=== PATIENT | male | born 1990 | race Caucasian/White ===

== ENCOUNTER 2024-10-16 12:41 | Emergency (ER) | payer SELFPAY ==
--- NOTE | 2024-10-16 12:48 | XR_ITS ---
WS: [id number] Exam: XR hand RT min 3V* [id number] Date/Time of Exam: 10/16/2024 12:57 PM Reason For Exam: injury There is a fracture of the distal end of the fifth metacarpal with volar angulation of the metacarpal head. No other fractures are identified. The joints are maintained. Soft tissue swelling along the fracture site. Bowing deformity of the visualized distal ulna which may be secondary to prior fracture. XR/XR hand RT min 3V* [id number] IMPRESSION: 1. Angulated fracture of the distal fifth metacarpal with soft tissue swelling.
--- OUTSIDE RECORDS SUMMARY | 2024-10-16 12:48 | XMS_ITS | Encounter Summary ---
Author Organization [facility] Address [address] [place] [address] Care Team Providers Care Deaf Interpreter Name Role Phone Yue Awad OPERATIONS DISPATCHER Primary Care Provider + Encounter Details Date Type Department Care Team (Latest Contact Info) Description 10/22/1998 Outpatient Historical [facility] Medicine [address] [phone] Vikki Peña MD [address] [place] [address] Contact dermatitis and other eczema, due to unspecified cause (Primary Dx); Impetigo; Attention deficit disorder with hyperactivity(314.01 ) Social History Tobacco Use Types Packs/Day Years Used Date Smoking Tobacco: Never Assessed Sex and Gender Information Value Date Recorded Sex Assigned at Not on file Legal Sex Male 2:56 AM SEMI DRIVER Gender Identity Not on file Sexual Orientation Not on file documented as of this encounter Plan of Treatment Not on file documented as of this encounter Visit Diagnoses Diagnosis Contact dermatitis and other eczema, due to unspecified cause- Primary Impetigo Attention deficit disorder with hyperactivity(314.01) Attention deficit disorder with hyperactivity documented in this encounter Additional Health Concerns Infection Onset Date Last Indicated Resolved Time C Diff Comment:Current 02/03/19 Hx 11/14/18 11/14/2018 02/03/2019 04/05/2019 8:[address] documented as of this encounter Care Teams Deaf Interpreter Relationship Specialty Start Date End Date Yue Awad NP PCP - General NURSE PRACTITIONER 06/20/18 documented as of this encounter
--- OUTSIDE RECORDS SUMMARY | 2024-10-16 12:48 | XMS_ITS | Encounter Summary ---
Author Organization [facility] Address [address] [place] [address] Care Team Providers Care Business Process Representative Name Role Phone Yue Awad AGRICULTURAL ENGINEER Primary Care Provider + Encounter Details Date Type Department Care Team (Latest Contact Info) Description 01/29/1999 [facility] Medicine [address] [phone] Vikki Peña MD [address] [place] [address] Attention deficit disorder with hyperactivity(314.01 ) (Primary Dx) Social History Tobacco Use Types Packs/Day Years Used Date Smoking Tobacco: Never Assessed Sex and Gender Information Value Date Recorded Sex Assigned at Not on file Legal Sex Male 2:56 AM QUALITY ASSURANCE Gender Identity Not on file Sexual Orientation Not on file documented as of this encounter Plan of Treatment Not on file documented as of this encounter Visit Diagnoses Diagnosis Attention deficit disorder with hyperactivity(314.01)- Primary Attention deficit disorder with hyperactivity documented in this encounter Additional Health Concerns Infection Onset Date Last Indicated Resolved Time C Diff Comment:Current 02/03/19 Hx 11/14/18 11/14/2018 02/03/2019 04/05/2019 8:[address] documented as of this encounter Care Teams Business Process Representative Relationship Specialty Start Date End Date Yue Awad NP PCP - General NURSE PRACTITIONER 06/20/18 documented as of this encounter
--- OUTSIDE RECORDS SUMMARY | 2024-10-16 12:48 | XMS_ITS | Encounter Summary ---
Author Organization [facility] Address [address] [place] [address] Care Team Providers Care Logger All Round Name Role Phone Yue Awad BIOLOGICAL SCIENCE TECHNICIAN Primary Care Provider + Encounter Details Date Type Department Care Team (Latest Contact Info) Description 08/25/1998 Outpatient Historical [facility] Medicine [address] [phone] Vikki Peña MD [address] [place] [address] Attention deficit disorder with hyperactivity(314.01 ) (Primary Dx) Social History Tobacco Use Types Packs/Day Years Used Date Smoking Tobacco: Never Assessed Sex and Gender Information Value Date Recorded Sex Assigned at Not on file Legal Sex Male 2:56 AM MERCHANDISE EXAMINER Gender Identity Not on file Sexual Orientation [...] documented as of this encounter Care Teams Logger All Round Relationship Specialty Start Date End Date Yue Awad NP PCP - General NURSE PRACTITIONER 06/20/18 documented as of this encounter
--- OUTSIDE RECORDS SUMMARY | 2024-10-16 12:48 | XMS_ITS | Clinical Summary ---
Author Organization [facility] Address [address] [place] [address] Care Team Providers Care Manager Fire Name Role Phone Yue Awad BOTTLE PACKING MACHINE CLEANER Primary Care Provider + Allergies No known active allergies Medications metoprolol tartrate (LOPRESSOR) 100 mg tablet Take 1 Tablet (100 mg) by mouth 2 times daily. 60 Tablet 3 05/08/2019 Active lisinopril (PRINIVIL) 20 mg tablet Take 1 Tablet (20 mg) by mouth daily. 90 Tablet 3 05/08/2019 Active ondansetron (ZOFRAN ODT) 4 mg Tablet, Rapid Dissolve Take 1 Tablet (4 mg) by mouth every 8 hours as needed for Nausea/Emesis . Dissolve tablet on top of tongue, then swallow with saliva. 21 Tablet 05/08/2019 Active cyclobenzaprine (FLEXERIL) 10 mg tablet Take 1 Tablet (10 mg) by mouth daily at bedtime. 30 Tablet 2 02/05/2020 Active Active Problems Problem Noted Date Diagnosed Date Tobacco use 05/08/2019 Essential hypertension 05/08/2019 Moderate protein-calorie malnutrition 02/11/2019 Acute pancreatitis 02/10/2019 Clostridioides difficile infection 11/15/2018 HTN (hypertension), benign 11/13/2018 Sepsis 11/13/2018 Umbilical hernia 11/13/2018 Crohn's disease of ileum 01/13/2016 Partial small bowel obstruction 01/13/2016 Morbid obesity 01/13/2016 Enteritis with ileus Granulomatous colitis Epigastric abdominal pain Immunizations Immunization Administration Dates Next Due (M-M-R II/PRIORIX)(12 MO UP) MEASLES, MUMPS AND RUBELLA VIRUS VACCINE, 0.5 ML IM/SUBCUT 12/07/1995,08/03/1995,10/25/1991,1990 Dt Dtp Dtap Vaccine 08/03/1995, 5,10/25/1991,1990,1990,1990 HIB, Unspecified Formulation 10/25/1991,12/17/18 91,1990 Hepatitis B Vaccine 05/16/1995,01/31/1995,1994 IPV/OPV 10/25/1991, 1,1990,1990 Family History Medical History Relation Name Comments Healthy Mother Colon Cancer Neg Hx Relation Name Status Comments Father Mother Alive Social History Tobacco Use Types Packs/Day Years Used Date Smoking Tobacco: Some Days Cigarettes 0.5 7 Smokeless Tobacco: Current Chew Comments:Some day tobacco ch ew Alcohol Use Standard Drinks/Week Comments Yes 0.8 (1 standard drink = 0.6 oz p ure alcohol) infrequently Sex and Gender Information Value Date Recorded Sex Assigned at Not on file Legal Sex Male 2:56 AM CHIEF OPERATIONS OFFICER Gender Identity Not on file Sexual Orientation Not on file Occupation Industry Job Start Date Job End Date Not on file Not on file Not on file Not on file Last Filed Vital Signs Vital Sign Reading Time Taken Comments Blood Pressure 138/88 02/05/2020 1:08 PM CDT Pulse 87 02/05/2020 1:08 PM CDT Temperature 36.9 C (98.4 F) 02/05/2020 1:08 PM CDT Respiratory Rate 20 02/05/2020 1:08 PM CDT Oxygen Saturation 96% 02/05/2020 1:08 PM CDT Inhaled Oxygen Concentration - - Weight 166.4 kg (366 lb 12.8 oz) 02/05/2020 1:08 PM CDT Height 162.6 cm (5' 4 ) 02/05/2020 1:08 PM CDT Body Mass Index 62.96 02/05/2020 1:08 PM CDT Plan of Treatment Health Maintenance Due Date Last Done Comments DTAP/TDAP/TD VACCINES (6 - Tdap) 2001 08/03/1995, 01/31/1995, 10/25/1991, Additional history exists INFLUENZA VACCINE (#1) 2024 HEPATITIS B VACCINES Completed 05/16/1995, 01/31/1995, 12/01/1994 HPV VACCINES Aged Out No longer eligi ble based on patient's age to complete this topic Insurance RX [facility] [employer] Advance Directives For more information, please contact: [phone] * Full Code (Latest Code Status on File) Date Activated Date Inactivated Comments 02/10/2019 4:08 AM 02/12/2019 6:22 PM * Full Code Date Activated Date Inactivated Comments 02/02/2019 9:09 PM 02/06/2019 3:14 PM * Full Code Date Activated Date Inactivated Comments 11/14/2018 1:25 AM 11/16/2018 4:45 PM * Full Code Date Activated Date Inactivated Comments 01/13/2016 3:50 AM 01/17/2016 7:09 PM * Full Code Date Activated Date Inactivated Comments 01/07/2016 10:38 AM 01/07/2016 1:49 PM Care Teams Manager Fire Relationship Specialty Start Date End Date Yue Awad NP PCP - General NURSE PRACTITIONER 06/20/18
--- OUTSIDE RECORDS SUMMARY | 2024-10-16 12:48 | XMS_ITS | Encounter Summary ---
Author Organization [facility] Address [address] [place] [address] Care Team Providers Care Window Cutter Name Role Phone Yue Awda BANQUET COORDINATOR Primary Care Provider + Encounter Details Date Type Department Care Team (Latest Contact Info) Description 09/30/1998 Outpatient Historical [facility] Medicine [address] [address] Ede Oneal MD [address] [place] [address] Impetigo (Primary Dx); Acute tonsillitis Social History Tobacco Use Types Packs/Day Years Used Date Smoking Tobacco: Never Assessed Sex and Gender Information Value Date Recorded Sex Assigned at Not on file Legal Sex Male 2:56 AM MOTOR COACH TOUR OPERATOR Gender Identity Not on file Sexual Orientation Not on file documented as of this encounter Plan of Treatment Not on file documented as of this encounter Visit Diagnoses Diagnosis Impetigo- Primary Acute tonsillitis documented in this encounter Additional Health Concerns Infection Onset Date Last Indicated Resolved Time C Diff Comment:Current 02/03/19 Hx 11/14/18 11/14/2018 02/03/2019 04/05/2019 8:[address] documented as of this encounter Care Teams Window Cutter Relationship Specialty Start Date End Date Yue Awad NP PCP - General NURSE PRACTITIONER 06/20/18 documented as of this encounter
[2024-10-16 12:49] VITALS: BP 208/115; PULSE 94; TEMP 36.6; O2SAT 96
--- OUTSIDE RECORDS SUMMARY | 2024-10-16 12:49 | XMS_ITS | Encounter Summary ---
Author Organization [facility] Address [address] [place] [address] Care Team Providers Care Institute Director Name Role Phone Yue Awad BOTTLE LABELER Primary Care Provider + Encounter Details Date Type Department Care Team (Latest Contact Info) Description 06/27/2000 Outpatient Historical [facility] Medicine [address], [place] [address] Ede Oneal MD [address] [place] [address] Attention deficit disorder with hyperactivity(314.01 ) (Primary Dx); Observation of childhood or adolescent antisocial behavior Social History Tobacco Use Types Packs/Day Years Used Date Smoking Tobacco: Never Assessed Sex and Gender Information Value Date Recorded Sex Assigned at Not on file Legal Sex Male 2:56 AM SUSPECT ARTIST SUPERVISOR Gender Identity Not on file Sexual Orientation Not on file documented as of this encounter Plan of Treatment Not on file documented as of this encounter Visit Diagnoses Diagnosis Attention deficit disorder with hyperactivity(314.01)- Primary Attention deficit disorder with hyperactivity Observation of childhood or adolescent antisocial behavior documented in this encounter Additional Health Concerns Infection Onset Date Last Indicated Resolved Time C Diff Comment:Current 02/03/19 Hx 11/14/18 11/14/2018 02/03/2019 04/05/2019 8:[address] documented as of this encounter Care Teams Institute Director Relationship Specialty Start Date End Date Yue Awad NP PCP - General NURSE PRACTITIONER 06/20/18 documented as of this encounter
--- OUTSIDE RECORDS SUMMARY | 2024-10-16 12:49 | XMS_ITS | Encounter Summary ---
Author Organization [facility] Address [address] [place] [address] Care Team Providers Care Pressed Or Blown Glass Worker Name Role Phone Yue Awad COMPUTER SYSTEMS INTEGRATOR Primary Care Provider + Encounter Details Date Type Department Care Team (Latest Contact Info) Description 10/10/2002 Outpatient Historical [facility] Medicine [address], [place] [address] Ede Oneal MD [address] [place] [address] DERMATITIS NOS (Primary Dx) Social History Tobacco Use Types Packs/Day Years Used Date Smoking Tobacco: Never Assessed Sex and Gender Information Value Date Recorded Sex Assigned at Not on file Legal Sex Male 2:56 AM STORE STOCK ASSOCIATE Gender Identity Not on file Sexual Orientation Not on file documented as of this encounter Plan of Treatment Not on file documented as of this encounter Visit Diagnoses Diagnosis Contact dermatitis and other eczema, due to unspecified cause- Primary documented in this encounter Additional Health Concerns Infection Onset Date Last Indicated Resolved Time C Diff Comment:Current 02/03/19 Hx 11/14/18 11/14/2018 02/03/2019 04/05/2019 8:[address] documented as of this encounter Care Teams Pressed Or Blown Glass Worker Relationship Specialty Start Date End Date Yue Awda NP PCP - General NURSE PRACTITIONER 06/20/18 documented as of this encounter
--- OUTSIDE RECORDS SUMMARY | 2024-10-16 12:49 | XMS_ITS | Encounter Summary ---
Author Organization [facility] Address [address] [place] [address] Care Team Providers Care Special Education Assistant Name Role Phone Yue Awad ARMHOLE SEWER Primary Care Provider + Encounter Details Date Type Department Care Team (Latest Contact Info) Description 04/19/1999 Outpatient Historical [address], [place] [address] Ede Oneal MD [address] [place] [address] Attention deficit disorder with hyperactivity(314.01 ) (Primary Dx) Social History Tobacco Use Types Packs/Day Years Used Date Smoking Tobacco: Never Assessed Sex and Gender Information Value Date Recorded Sex Assigned at Not on file Legal Sex Male 2:56 AM FUEL ISLAND ATTENDANT Gender Identity Not on file Sexual Orientation [...] documented as of this encounter Care Teams Special Education Assistant Relationship Specialty Start Date End Date Yue Awad NP PCP - General NURSE PRACTITIONER 06/20/18 documented as of this encounter
--- OUTSIDE RECORDS SUMMARY | 2024-10-16 12:49 | XMS_ITS | Encounter Summary ---
Author Organization [facility] Address [address] [place] [address] Care Team Providers Care Cad Designer Name Role Phone Yue Awad EP TECHNOLOGIST Primary Care Provider + Encounter Details Date Type Department Care Team (Latest Contact Info) Description 11/21/2005 Outpatient Historical [facility] Medicine [address] [address] Ede Onael MD [address] [place] [address] Elevated Blood Pressure Reading without Diagnosis of Hypertension (Primary Dx) Social History Tobacco Use Types Packs/Day Years Used Date Smoking Tobacco: Never Assessed Sex and Gender Information Value Date Recorded Sex Assigned at Not on file Legal Sex Male 2:56 AM POSTAGE MACHINE OPERATOR Gender Identity Not on file Sexual Orientation Not on file documented as of this encounter Plan of Treatment Not on file documented as of this encounter Visit Diagnoses Diagnosis Elevated blood pressure reading without diagnosis of hypertension- Primary documented in this encounter Additional Health Concerns Infection Onset Date Last Indicated Resolved Time C Diff Comment:Current 02/03/19 Hx 11/14/18 11/14/2018 02/03/2019 04/05/2019 8:[address] documented as of this encounter Care Teams Cad Designer Relationship Specialty Start Date End Date Yue Awad NP PCP - General NURSE PRACTITIONER 06/20/18 documented as of this encounter
--- OUTSIDE RECORDS SUMMARY | 2024-10-16 12:49 | XMS_ITS | Encounter Summary ---
Author Organization [facility] Address [address] [place]: [place] [address] Care Team Providers Care Chucking Machine Operator Name Role Phone Yue Awad FACING CUTTING MACHINE OPERATOR Primary Care Provider + Encounter Details Date Type Department Care Team (Late st Contact Info) Description 06/27/2000 Outpatient Historical Ede Oneal MD [address] [place] [address] Social History Tobacco Use Types Packs/Day Years Used Date Smoking Tobacco: Never Assessed Sex and Gender Information Value Date Recorded Sex Assigned at Not on file Legal Sex Male 2:56 AM GRAPHIC ENGINEER Gender Identity Not on file Sexual Orientation Not on file documented as of this encounter Plan of Treatment Not on file documented as of this encounter Visit Diagnoses Not on filedocumented in this encounter Additional Health Concerns Infection Onset Date Last Indicated Resolved Time C Diff Comment:Current 02/03/19 Hx 11/14/18 11/14/2018 02/03/2019 04/05/2019 8:[address] documented as of this encounter Care Teams Chucking Machine Operator Relationship Specialty Start Date End Date Yue Awad NP PCP - General NURSE PRACTITIONER 06/20/18 documented as of this encounter
--- OUTSIDE RECORDS SUMMARY | 2024-10-16 12:49 | XMS_ITS | Encounter Summary ---
Author Organization [facility] Address [address] [place] [address] Care Team Providers Care Hands Assembler Name Role Phone Yue Awad SENIOR WEB SERVICES DEVELOPER Primary Care Provider + Encounter Details Date Type Department Care Team (Latest Contact Info) Description 08/04/1999 Outpatient Historical [facility] Medicine [address], [place] [phone] Ede Oneal MD [address] [place] [address] Epistaxis (Primary Dx) Social History Tobacco Use Types Packs/Day Years Used Date Smoking Tobacco: Never Assessed Sex and Gender Information Value Date Recorded Sex Assigned at Not on file Legal Sex Male 2:56 AM DIRECT OF REAL ESTATE Gender Identity Not on file Sexual Orientation Not on file documented as of this encounter Plan of Treatment Not on file documented as of this encounter Visit Diagnoses Diagnosis Epistaxis- Primary documented in this encounter Additional Health Concerns Infection Onset Date Last Indicated Resolved Time C Diff Comment:Current 02/03/19 Hx 11/14/18 11/14/2018 02/03/2019 04/05/2019 8:[address] documented as of this encounter Care Teams Hands Assembler Relationship Specialty Start Date End Date Yue Awad NP PCP - General NURSE PRACTITIONER 06/20/18 documented as of this encounter
--- OUTSIDE RECORDS SUMMARY | 2024-10-16 12:49 | XMS_ITS | Encounter Summary ---
Author Organization [facility] Address [address] [place] [address] Care Team Providers Care Cra Name Role Phone Yue Awad E COMMERCE WEB DEVELOPER Primary Care Provider + Encounter Details Date Type Department Care Team (Latest Contact Info) Description 07/31/2001 Outpatient Historical [facility] Medicine [address] [address] Ede Oneal MD [address] [place] [address] UNS ASTHMA WOSTATUS ASTHMATICUS (Primary Dx); DERMATITIS NOS Social History Tobacco Use Types Packs/Day Years Used Date Smoking Tobacco: Never Assessed Sex and Gender Information Value Date Recorded Sex Assigned at Not on file Legal Sex Male 2:56 AM PRECISION OPTICS TECHNICIAN Gender Identity Not on file Sexual Orientation Not on file documented as of this encounter Plan of Treatment Not on file documented as of this encounter Visit Diagnoses Diagnosis Unspecified asthma(493.90)- Primary Unspecified asthma Contact dermatitis and other eczema, due to unspecified cause documented in this encounter Additional Health Concerns Infection Onset Date Last Indicated Resolved Time C Diff Comment:Current 02/03/19 Hx 11/14/18 11/14/2018 02/03/2019 04/05/2019 8:[address] documented as of this encounter Care Teams Cra Relationship Specialty Start Date End Date Yue Awad NP PCP - General NURSE PRACTITIONER 06/20/18 documented as of this encounter
--- OUTSIDE RECORDS SUMMARY | 2024-10-16 12:49 | XMS_ITS | Encounter Summary ---
Author Organization [facility] Address [address] [place] [address] Care Team Providers Care Vp Digital Marketing Name Role Phone Yue Awad SURVEILLANCE OPERATOR Primary Care Provider + Encounter Details Date Type Department Care Team (Late st Contact Info) Description 10/08/2024 External Device Data [place] ABSTRACTION Provider, Abstract NO ADDRESS ON FILE Social History Tobacco Use Types Packs/Day Years Used Date Smoking Tobacco: Every Day Cigarettes Smokeless Tobacco: Current Chew Alcohol Use Standard Drinks/Week Comments Not Currently 0 (1 standard drink = 0.6 oz pur e alcohol) Sex and Gender Information Value Date Recorded Sex Assigned at Not on file Legal Sex Male 2:43 AM MANAGER INTEGRATION Gender Identity Not on file Sexual Orientation Not on file documented as of this encounter Plan of Treatment Not on file documented as of this encounter Visit Diagnoses Not on filedocumented in this encounter Care Teams Vp Digital Marketing Relationship Specialty Start Date End Date Yue Awad NP PCP - General NURSE PRACTITIONER 06/20/18 documented as of this encounter
--- OUTSIDE RECORDS SUMMARY | 2024-10-16 12:49 | XMS_ITS | Encounter Summary ---
Author Organization [facility] Address [address] [place] [address] Care Team Providers Care Civil Division Deputy Sheriff Name Role Phone Yue Awad MEDICINE WORKER Primary Care Provider + Encounter Details Date Type Department Care Team (Latest Contact Info) Description 05/09/2003 Outpatient Historical [facility] Medicine [address] [address] Ede Oneal MD [address] [place] [address] ACUTE BRONCHITIS (Primary Dx); POLYURIA; POLYDIPSIA Social History Tobacco Use Types Packs/Day Years Used Date Smoking Tobacco: Never Assessed Sex and Gender Information Value Date Recorded Sex Assigned at Not on file Legal Sex Male 2:56 AM AUTOMOBILE MECHANIC MOTOR Gender Identity Not on file Sexual Orientation Not on file documented as of this encounter Plan of Treatment Not on file documented as of this encounter Visit Diagnoses Diagnosis Acute bronchitis- Primary Polyuria Polydipsia documented in this encounter Additional Health Concerns Infection Onset Date Last Indicated Resolved Time C Diff Comment:Current 02/03/19 Hx 11/14/18 11/14/2018 02/03/2019 04/05/2019 8:[address] documented as of this encounter Care Teams Civil Division Deputy Sheriff Relationship Specialty Start Date End Date Yue Awad NP PCP - General NURSE PRACTITIONER 06/20/18 documented as of this encounter
--- OUTSIDE RECORDS SUMMARY | 2024-10-16 12:49 | XMS_ITS | Encounter Summary ---
Author Organization [facility] Address [address] [place] [address] Care Team Providers Care Mining Detail Draftsperson Name Role Phone Yue Awad SPLICER OPERATOR Primary Care Provider + Encounter Details Date Type Department Care Team (Latest Contact Info) Description 10/07/2002 Outpatient Historical [facility] Medicine [address] [address] Ede Oneal MD [address] [place] [address] ABNORMAL WEIGHT GAIN (Primary Dx) Social History Tobacco Use Types Packs/Day Years Used Date Smoking Tobacco: Never Assessed Sex and Gender Information Value Date Recorded Sex Assigned at Not on file Legal Sex Male 2:56 AM BUSINESS PROCESS COORDINATOR Gender Identity Not on file Sexual Orientation Not on file documented as of this encounter Plan of Treatment Not on file documented as of this encounter Visit Diagnoses Diagnosis Abnormal weight gain- Primary documented in this encounter Additional Health Concerns Infection Onset Date Last Indicated Resolved Time C Diff Comment:Current 02/03/19 Hx 11/14/18 11/14/2018 02/03/2019 04/05/2019 8:[address] documented as of this encounter Care Teams Mining Detail Draftsperson Relationship Specialty Start Date End Date Yue Awad NP PCP - General NURSE PRACTITIONER 06/20/18 documented as of this encounter
--- OUTSIDE RECORDS SUMMARY | 2024-10-16 12:49 | XMS_ITS | Encounter Summary ---
Author Organization [facility] Address [address] [place] [address] Care Team Providers Care Windows Server Engineer Name Role Phone Yue Awad CROP OR GRAIN FARMER Primary Care Provider + Encounter Details Date Type Department Care Team (Latest Contact Info) Description 09/16/[address] 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 Gender Identity Not on file Sexual Orientation Not on file documented as of this encounter Plan of Treatment Not on file documented as of this encounter Visit Diagnoses Diagnosis Predominant disturbance of emotions- Primary documented in this encounter Additional Health Concerns Infection Onset Date Last Indicated Resolved Time C Diff Comment:Current 02/03/19 Hx 11/14/18 11/14/2018 02/03/2019 04/05/2019 8:[address] documented as of this encounter Care Teams Windows Server Engineer Relationship Specialty Start Date End Date Yue Awad NP PCP - General NURSE PRACTITIONER 06/20/18 documented as of this encounter
--- OUTSIDE RECORDS SUMMARY | 2024-10-16 12:49 | XMS_ITS | Encounter Summary ---
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
--- OUTSIDE RECORDS SUMMARY | 2024-10-16 12:49 | XMS_ITS | Encounter Summary ---
Author Organization [facility] Address [address] [place] [address] Care Team Providers Care Marine Painter Name Role Phone Yue Awad NP Primary Care Provider + Encounter Details Date Type Department Care Team (Latest Contact Info) Description 10/26/2005 Outpatient Historical [facility] Medicine [address], [place] [address] Ede Oneal MD [address] [place] [address] Unspecified Essential Hypertension (Primary Dx); Abnormal Weight Gain Social History Tobacco Use Types Packs/Day Years Used Date Smoking Tobacco: Never Assessed Sex and Gender Information Value Date Recorded Sex Assigned at Not on file 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 Gender Identity Not on file Sexual Orientation Not on file documented as of this encounter Plan of Treatment Not on file documented as of this encounter Visit Diagnoses Diagnosis Unspecified essential hypertension- Primary Abnormal weight gain documented in this encounter Additional Health Concerns Infection Onset Date Last Indicated Resolved Time C Diff Comment:Current 02/03/19 Hx 11/14/18 11/14/2018 02/03/2019 04/05/2019 8:[address] documented as of this encounter Care Teams Marine Painter Relationship Specialty Start Date End Date Yue Awad NP PCP - General NURSE PRACTITIONER 06/20/18 documented as of this encounter
--- OUTSIDE RECORDS SUMMARY | 2024-10-16 12:49 | XMS_ITS | Encounter Summary ---
Author Organization [facility] Address [address] [place] [address] Care Team Providers Care Director Inbound Sales Name Role Phone Yue Awad ON SITE COORDINATOR Primary Care Provider + Encounter Details Date Type Department Care Team (Latest Contact Info) Description 05/27/2003 Outpatient Historical [facility] Medicine [address] [phone] Vikki Peña MD [address] [place] [address] Hypertrophy tonsils (Primary Dx); ACUTE PHARYNGITIS Social History Tobacco Use Types Packs/Day Years Used Date Smoking Tobacco: Never Assessed Sex and Gender Information Value Date Recorded Sex Assigned at Not on file 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 Gender Identity Not on file Sexual Orientation Not on file documented as of this encounter Plan of Treatment Not on file documented as of this encounter Visit Diagnoses Diagnosis Hypertrophy tonsils- Primary Hypertrophy of tonsils alone Acute pharyngitis documented in this encounter Additional Health Concerns Infection Onset Date Last Indicated Resolved Time C Diff Comment:Current 02/03/19 Hx 11/14/18 11/14/2018 02/03/2019 04/05/2019 8:[address] documented as of this encounter Care Teams Director Inbound Sales Relationship Specialty Start Date End Date Yue Awad NP PCP - General NURSE PRACTITIONER 06/20/18 documented as of this encounter
--- OUTSIDE RECORDS SUMMARY | 2024-10-16 12:49 | XMS_ITS | Encounter Summary ---
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
--- OUTSIDE RECORDS SUMMARY | 2024-10-16 12:49 | XMS_ITS | Encounter Summary ---
Author Organization [facility] Address [address] 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
--- OUTSIDE RECORDS SUMMARY | 2024-10-16 12:49 | XMS_ITS | Clinical Summary ---
Author Organization [facility] Address [address] [place]n: Epic Prelude [place]T [place] [address] Care Team Providers Care Certified Orthoptist Name Role Phone Yue Awad SOCIAL SCIENCE RESEARCH ASSISTANT Primary Care Provider + Allergies No known active allergies Medications cyclobenzaprine (FLEXERIL) 10 mg tablet Take 1 Tablet (10 mg) by mouth daily at bedtime. 30 Tablet 2 0 Active albuterol sulfate 90 mcg/Actuation inhalerIndicatio ns:COVID-19 virus detected Take 2 Puffs by inhalation every 6 hours as needed for Respiration, Shortness of Breath or Wheezing. 8.5 Gram 2 Active lisinopriL (PRINIVIL) 20 mg tabletIndication s:HTN (hypertension), benign Take 1 tablet by mouth once daily 30 Tablet 2 Active metoprolol tartrate (LOPRESSOR) 100 mg tabletIndication s:HTN (hypertension), benign Take 1 tablet by mouth twice daily 60 Tablet 2 Active albuterol sulfate HFA 90 mcg/actuation aerosol inhalerIndicatio ns:Upper respiratory tract infection, unspecified type,Cough, unspecified type Take 2 Puffs by inhalation every 6 hours as needed for Wheezing. If symptoms severe, may use as often as every 4 hours 18 Gram 4 Active Active Problems Problem Noted Date Diagnosed Date Tobacco use 05/08/2019 Essential hypertension 05/08/2019 Moderate protein-calorie malnutrition 02/11/2019 Acute pancreatitis 02/10/2019 Clostridioides difficile infection 11/15/2018 Sepsis 11/13/2018 HTN (hypertension), benign 11/13/2018 Umbilical hernia 11/13/2018 Crohn's disease of ileum 01/13/2016 Morbid obesity 01/13/2016 Partial small bowel obstruction 01/13/2016 Enteritis with ileus Granulomatous colitis Epigastric abdominal pain Encounters Date Type Department Care Team Description 10/08/2024 External Device Data [facility] ABSTRACTION Provider, Abstract 08/13/2024 External Device Data [facility] ABSTRACTION Provider, Abstract from Last 3 Months Immunizations Immunization Administration Dates Next Due (M-M-R [...] Every Day Cigarettes Smokeless Tobacco: Current Chew Tobacco Cessation:Ready to Q uit: No; Counseling Given: Yes Alcohol Use Standard Drinks/Week Comments Not Currently 0 (1 standard drink = 0.6 oz pur e alcohol) Sex and Gender Information Value Date Recorded Sex Assigned at Not on file 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 Gender Identity Not on file Sexual Orientation Not on file Last Filed Vital Signs Vital Sign Reading Time Taken Comments Blood Pressure 190/100 12/09/2021 11:10 AM CDT Pulse 98 12/09/2021 10:42 AM CDT Temperature 36.3 C (97.3 F) 12/09/2021 10:42 AM CDT Respiratory Rate 24 12/09/2021 10:42 AM CDT Oxygen Saturation 95% 12/09/2021 10:42 AM CDT Inhaled Oxygen Concentration - - Weight 148.3 kg (327 lb) 12/09/2021 10:42 AM CDT Height 162.6 cm (5' 4 ) 12/09/2021 10:42 AM CDT Body Mass Index 56.13 12/09/2021 10:42 AM CDT Plan of Treatment Health Maintenance Due Date Last Done Comments DTAP/TDAP/TD VACCINES (6 - Tdap) 2001 08/03/1995, 01/31/1995, 10/25/1991, Additional history exists INFLUENZA VACCINE (#1) 2024 HEPATITIS B VACCINES Completed 05/16/1995, 01/31/1995, 12/01/1994 HPV VACCINES Aged Out No longer eligi ble based on patient's age to complete this topic Insurance [facility] [id number] * Guarantor: SOCO MENENDEZ Account Type Relation to Patient Date of Phone Billing Address Personal/Family [address] [address] [facility] Care Teams Certified Orthoptist Relationship Specialty Start Date End Date Yue Awad NP PCP - General NURSE PRACTITIONER 06/20/18
--- OUTSIDE RECORDS SUMMARY | 2024-10-16 12:49 | XMS_ITS | Encounter Summary ---
Author Organization [facility] Address [address] [place] [address] Care Team Providers Care Director Employee Communications Name Role Phone Yue Awad BRASS FINISHER Primary Care Provider + Encounter Details Date Type Department Care Team (Latest Contact Info) Description 10/28/2005 Outpatient Historical [facility] Medicine [address], [place] [phone] Ede Oneal MD [address] [place] [address] DM w/o Complication Type II (CMS/HCC) (Primary Dx) Social History Tobacco Use Types Packs/Day Years Used Date Smoking Tobacco: Never Assessed Sex and Gender Information Value Date Recorded Sex Assigned at Not on file Legal 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 Male 2:56 AM COMPLAINT 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 Gender Identity Not on file Sexual Orientation Not on file documented as of this encounter Plan of Treatment Not on file documented as of this encounter Visit Diagnoses Diagnosis Type II or unspecified type diabetes mellitus without mention of complication, not stated as uncontrolled- Primary documented in this encounter Additional Health Concerns Infection Onset Date Last Indicated Resolved Time C Diff Comment:Current 02/03/19 Hx 11/14/18 11/14/2018 02/03/2019 04/05/2019 8:[address] documented as of this encounter Care Teams Director Employee Communications Relationship Specialty Start Date End Date Yue Awad NP PCP - General NURSE PRACTITIONER 06/20/18 documented as of this encounter
--- OUTSIDE RECORDS SUMMARY | 2024-10-16 12:49 | XMS_ITS | Encounter Summary ---
Author Organization [facility] Address [address] [place] [address] Care Team Providers Care Digital Director Name Role Phone Yue Awad INCOMING INSPECTOR Primary Care Provider + Encounter Details Date Type Department Care Team (Latest Contact Info) Description 05/31/2000 Outpatient Historical [facility] Medicine [address], [place] [phone] Ede Oneal MD [address] [place] [address] Infective otitis externa, unspecified (Primary Dx); Acute frontal sinusitis Social History Tobacco Use Types Packs/Day Years Used Date Smoking Tobacco: Never Assessed Sex and Gender Information Value Date Recorded Sex Assigned at Not on file 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 Gender Identity Not on file Sexual Orientation Not on file documented as of this encounter Plan of Treatment Not on file documented as of this encounter Visit Diagnoses Diagnosis Infective otitis externa, unspecified- Primary Acute frontal sinusitis documented in this encounter Additional Health Concerns Infection Onset Date Last Indicated Resolved Time C Diff Comment:Current 02/03/19 Hx 11/14/18 11/14/2018 02/03/2019 04/05/2019 8:[address] documented as of this encounter Care Teams Digital Director Relationship Specialty Start Date End Date Yue Awad NP PCP - General NURSE PRACTITIONER 06/20/18 documented as of this encounter
--- OUTSIDE RECORDS SUMMARY | 2024-10-16 12:49 | XMS_ITS | Encounter Summary ---
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
--- OUTSIDE RECORDS SUMMARY | 2024-10-16 12:49 | XMS_ITS | Encounter Summary ---
Author Organization [facility] Address [address] [place] [address] Care Team Providers Care Hadoop Developer Name Role Phone Yue Awad PAROLE SUPERVISOR Primary Care Provider + Encounter Details Date Type Department Care Team (Latest Contact Info) Description 06/12/2000 Outpatient Historical [facility] Medicine [address], [place] [address] Ede Oneal MD [address] [place] [address] Observation of childhood or adolescent antisocial behavior (Primary Dx) Social History Tobacco Use Types Packs/Day Years Used Date Smoking Tobacco: Never Assessed Sex and Gender Information Value Date Recorded Sex Assigned at Not on file 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 Gender Identity Not on file Sexual Orientation Not on file documented as of this encounter Plan of Treatment Not on file documented as of this encounter Visit Diagnoses Diagnosis Observation of childhood or adolescent antisocial behavior- Primary documented in this encounter Additional Health Concerns Infection Onset Date Last Indicated Resolved Time C Diff Comment:Current 02/03/19 Hx 11/14/18 11/14/2018 02/03/2019 04/05/2019 8:[address] documented as of this encounter Care Teams Hadoop Developer Relationship Specialty Start Date End Date Yue Awad NP PCP - General NURSE PRACTITIONER 06/20/18 documented as of this encounter
--- NOTE | 2024-10-16 13:11 | ED_ITS ---
HPI - Extremity Problem General: Chief complaint: Extremity Injury, Upper Stated complaint: injury to right hand Time Seen by Provider: 10/16/24 12:56 Source: patient Mode of arrival: ambulatory Limitations: no limitations History of Present Illness: 34yo Male presents with family for evalu ation of right hand injury that occurred 2 days ago. Patient reports he was attempting to punch a punching bag, missed, and hit a refrigerator instead. Patient states he has had difficulty moving his hand since the incident. He reports he has been using Tylenol and ibuprofen with no improvement. He denies any other concerns at this time. Patient is right-hand dominant. Associated symptoms: Deny fever(s) Related Data Home Medications ?Medication ?Instructions ?Recorded ?Confirmed ibuprofen 200 mg capsule 200 mg PO Q6H PRN 12/17/22 0 10/23/23 Previous Rx's ?Medication ?Instructions ?Recorded lisinopril 20 mg tablet 20 mg PO DAILY #90 tabs 07/10 08/01 hydrocodone 5 mg-acetaminophen 325 1 tab PO Q8H PRN pa in, moderate 10/16/24 mg tablet #12 tabs ondansetron 4 mg disintegrating 4 mg PO Q8H PRN nausea and 10/16/24 tablet vomiting #20 tabs Allergies Allergy/AdvReac Type Severity Reaction Status Date / Time No Known Allergies Allergy Verified 10/16/24 12:54 Review of Systems Const: Denies: fever(s), chills or body aches Musc: Reports: extremity pain (right hand) and extremity swelling (right hand) [facility] ED PFSH: Medical History (Updated 10/16/24 @ 14:36 by NICOLAS Diaz) HTN (hypertension) with goal to be determined Social History Smoking and tobacco/nicotine status: current every day tobacco/nicotine user Physical Exam Const: COMMON NORMALS: no acute distress, patient oriented x3, healthy appearing and alert GENERAL APPEARANCE: cooperative ORIENTATION/CONSCIOUSNESS: Yes awake OTHER: Patient is ambulatory to vertical flow with no assistance. He is sitting upright in the recliner in no acute distress. He is able to give history with no difficulty. He is interactive with exam appropriately. Family is at bedside HENMT: COMMON NORMALS: normocephalic and atraumatic HEAD & SCALP: normocephalic and atraumatic Chest: CHEST: Yes Symmetrical chest wall rise Resp: COMMON NORMALS: normal respiratory effort EFFORT & INSPECTION: Yes able to speak in complete sentences Extremity: RIGHT UPPER EXTREMITY: Yes hand & digits Right hand and digits: Yes inspection (Ecchymosis and swelling noted to both dorsum and palm, ulnar aspect), Yes palpation (TTP), Yes ROM exam (Decreased range of motion of digits 4 and 5) and Yes neurovascular exam (Radial pulse 2+, capillary refill less than 3 seconds) Neuro: COMMON NORMALS: patient oriented x3 SENSORIUM/ORIENTATION: Yes alert Psych: COMMON NORMALS: cooperative Procedures Orthopedic Fracture Reduction Fracture #1: Side: right Fracture Reduction Location: metacarpal (5th) Analgesia: hematoma block Technique: direct manipulation Post-reduction neuro exam: intact Post-reduction vascular exam: intact Splint Applied: Yes (ulnar gutter) Patient Tolerated Procedure: well Course Vital Signs: Vital signs: Vital Signs Temperature 97.8 F 10/16/24 12:49 Pulse Rate 94 10/16/24 12:49 Blood Pressure 208/115 10/16/24 12:49 Pulse Oximetry 96 10/16/24 12:49 Oxygen Delivery Me thod Room Air 10/16/24 12:49 MDM - Extremity (Nontraumatic) Medical Decision Making 34yo male here with family for right hand pain and swelling after accidentally punching a refrigerator 2 days ago. Patient is right-hand dominant. He has had difficulty moving digits 4 and 5 since the incident. Denies any other injury or concern at this time. Patient is nontoxic in appearance. Hypertension noted on triage vitals, history of hypertension. Patient is supposed to take lisinopril. Angulated fifth metacarpal fracture noted on x-ray. Discussed findings with patient. Discussed with patient attempting closed reduction to decrease the angulation, then referral to orthopedics or just proceeding with referral to orthopedics. Patient was agreeable to proceed with attempted reduction. Patient tolerated well. Difficult to determine if reduction was successful with postreduction x-rays. Ulnar gutter splint applied and proceed with referral to orthopedics. Short course hydrocodone sent to patient's pharmacy, sedation precautions provided. Ondansetron also sent to patient's pharmacy. Recommend follow-up with orthopedics as soon as possible. Return precautions provided. Patient states understanding and has no further questions or concerns at this time. Medical Records I reviewed the patient's medical records. Lab Data Radiology Impressions Hand X-Ray 10/16/24 12:48 IMPRESSION: 1. Angulated fracture of the distal fifth metacarpal with soft tissue swelling. All radiology interpretation(s) finalized by discharge Discharge Plan Discharge Patient Disposition: Home Clinical Impression: Fracture of fifth metacarpal bone Condition: Stable Prescriptions: New hydrocodone-acetaminophen 5-325 mg tablet 1 tab PO Q8H PRN (Reason: pain, moderate) Qty: 12 0RF ondansetron 4 mg tablet,disintegrating 4 mg PO Q8H PRN (Reason: nausea and vomiting) Qty: 20 0RF Discontinued tizanidine [Zanaflex] 4 mg capsule 4 mg PO Q8H PRN (Reason: muscle spasticity) Qty: 30 0RF No Action ibuprofen 200 mg capsule 200 mg PO Q6H PRN lisinopril 20 mg tablet 20 mg PO DAILY Qty: 90 0RF ketorolac 30 mg/mL solution 30 mg IM ONCE Qty: 1 0RF Discharge Orders: Discharge ED (Routine); Ordered 10/16/24 Ordered By: Thang Peoples Discharge Diet: Usual diet Discharge Activity: Limit activity as instructed Patient Instructions: Boxer Fracture (ED), Opioid Safety, Pain Management, Patient Portal & Wendy Instructions Activity Restrictions/Additional Instructions: Short course hydrocodone has been sent to your pharmacy for moderate to severe pain. Please do not drive or operate heavy machinery while taking pain medications. Ondansetron has been sent to your pharmacy to help with any nausea/vomiting that may come from the pain medication A referral has been placed to orthopedics for follow-up of the hand fracture. Please follow-up with orthopedics as soon as possible Keep the splint in place until you have been seen by orthopedics Minimal activity with the right hand until you have been cleared by orthopedics Return to the emergency department if any further injury, rapid worsening pain, and as needed Stand Alone Forms: Work/School Release Print Language: Uzbek Coding Level of Care Code ED Kinesiology Professor for Sharla Lundberg
--- NOTE | 2024-10-16 14:34 | XRR_ITS ---
PROCEDURE INFORMATION: Exam: XR Right Hand Exam date and time: 10/16/2024 2:37 PM Age: 34 years old Clinical indication: Injury or trauma; Other: Not specified; Blunt trauma (contusions or hematomas); Hand; Right; Additional info: FX reduction TECHNIQUE: Imaging protocol: Radiologic exam of the right hand. Views: 1 or 2 views. COMPARISON: CR XR hand RT min 3V* [id number] 10/16/2024 1:04 PM FINDINGS: Limitations: Images are obtained through an external splint which diminishes bone and soft-tissue detail. Bones/joints: Redemonstrated minimally displaced fracture of the 5th metacarpal head/neck. Osseous alignment is unchanged. Soft tissues: As above. XR/XR hand RT 2V [id number] IMPRESSION: Minimally displaced distal 5th metacarpal fracture, unchanged in osseous alignment.
[2024-10-16 15:08] VITALS: BP 206/108; PULSE 92; O2SAT 95
--- NOTE | 2024-10-17 07:50 | DCPLANNER ---
messaged ortho for er f/u
== END 2024-10-16 15:10 | disposition home or self-care (01) ==
PROVIDERS: Emergency Provider Nurse Practitioner
DX: S62.396A Other fracture of fifth metacarpal bone, right hand, initial encounter for closed fracture (principal); W22.8XXA Striking against or struck by other objects, initial encounter
CPT/HCPCS: 26605; 29125; 73120; 73130; 99283; J9999

== ENCOUNTER → 2024-10-22 11:11 | Outpatient (BNVA) | payer SELFPAY | PROVIDERS: Visit Provider Orthopaedic Surgery | DX: S62.366A Nondisplaced fracture of neck of fifth metacarpal bone, right hand, initial encounter for closed fracture (principal); X58.XXXA Exposure to other specified factors, initial encounter | CPT/HCPCS: 73130 ==

== ENCOUNTER 2024-10-22 12:13 | Outpatient (CLI) | payer SELFPAY | END 2024-10-22 12:14 | disposition home or self-care (01) | LOC: SPT 12:19 | PROVIDERS: Visit Provider Orthopaedic Surgery | DX: Z46.89 Encounter for fitting and adjustment of other specified devices (principal); S62.366D Nondisplaced fracture of neck of fifth metacarpal bone, right hand, subsequent encounter for fracture with routine healing; X58.XXXD Exposure to other specified factors, subsequent encounter | CPT/HCPCS: L3984 ==

== ENCOUNTER → 2024-11-05 11:14 | Outpatient (BNVA) | payer SELFPAY | PROVIDERS: Visit Provider Orthopaedic Surgery | DX: S62.366D Nondisplaced fracture of neck of fifth metacarpal bone, right hand, subsequent encounter for fracture with routine healing (principal); X58.XXXD Exposure to other specified factors, subsequent encounter | CPT/HCPCS: 73130 ==

== ENCOUNTER → 2024-11-26 10:41 | Outpatient (BNVA) | payer SELFPAY | PROVIDERS: Visit Provider Orthopaedic Surgery | DX: S62.366D Nondisplaced fracture of neck of fifth metacarpal bone, right hand, subsequent encounter for fracture with routine healing (principal); X58.XXXD Exposure to other specified factors, subsequent encounter | CPT/HCPCS: 73130 ==